=== PATIENT | female | born 1965 | race Caucasian/White ===

== ENCOUNTER 2024-11-14 08:56 | Emergency (ER) | payer OTHER ==
[~2024-11-14] VITALS: Ht 172.7 cm; Wt 65.0 kg
[2024-11-14 09:02] VITALS: BP 116/56
[2024-11-14] MEDS ORDERED: LEVOTHYROXIN75 MCG PO (09:10)
[2024-11-14] MEDS ORDERED: PROTONIX40 M2 PO (09:10)
[2024-11-14] MEDS ORDERED: HYDROCORTISONE0.5 % TOP (09:16)
[2024-11-14] MEDS ORDERED: PREDNISONE50 MG PO (09:16)
[2024-11-14] MEDS ORDERED: ALL DAY10 MG PO (09:16)
== END 2024-11-14 09:33 | disposition home or self-care (01) | DRG 607 ==
LOC: ED 08:56
DX: L30.9 Dermatitis, unspecified (principal)
CPT/HCPCS: J1100